=== PATIENT | female | born 1970 | race Caucasian/White ===

== ENCOUNTER 2016-12-07 13:04 | Emergency (ER) | payer OTHER ==
[2016-12-07 17:12] LABS: Urine Bilirubin Negative (Negative); Urine Glucose Negative (Negative); Urine Nitrite Negative (Negative)
[2016-12-07 17:15] VITALS: BP 133/66
[2016-12-07 18:04] LABS: Hematocrit 37 % (35-47); Hemoglobin 12.4 g/dl (12.0-16.0); Mean Corpuscular HGB Conc 34 g/dl (31-36); Mean Corpuscular Hemoglobin 30 pg (27-31); Mean Corpuscular Volume 91 fL (80-97); Mean Platelet Volume 8 um3 (7.4-10.4); Red Cell Distribution Width 14 % (10.5-15); White Blood Count 14.4 10^3/ul (3.5-10.8)
[2016-12-07 18:38] LABS: Albumin 4.1 g/dL (3.2-5.2); BUN/Creatinine Ratio 8.1 (8-20); EGFR Non-African American 47.4 (>60); Globulin 3.6 g/dL (2-4); Potassium 3.9 mmol/L (3.5-5.0); Total Bilirubin 0.4 mg/dL (0.2-1.0); Total Protein 7.7 g/dL (6.4-8.9)
--- NOTE | 2016-12-07 18:43 | RAD ---
INDICATION: Right flank pain COMPARISON: CT abdomen pelvis January 21, 2014 TECHNIQUE: Noncontrast axial source images were acquired from the level hemidiaphragms to the symphysis pubis as part of CT imaging for renal stone. Lung bases: The lung bases are clear. Liver: The liver is normal in size. Noncontrast imaging shows no evidence of a hepatic mass or ductal dilatation. Gallbladder: Cholecystectomy. Spleen: The spleen is normal in size. The noncontrast CT appearance is normal. Pancreas: Noncontrast imaging shows no pancreatic mass or ductal dilitation. Adrenal glands: No masses are identified. Kidneys/Bladder: There is no evidence of nephrolithiasis or CT evidence of hydronephrosis. Noncontrast imaging shows no evidence of a renal mass. The bladder is unremarkable.. Adenopathy: There is no evidence of intraperitoneal or retroperitoneal adenopathy. Evaluation is limited without oral contrast. Fluid collections: There are no free or localized fluid collections. Vessels: The aorta and iliac vessels are normal in caliber. There are no significant atherosclerotic changes. The IVC appears normal Pelvic organs: The uterus and adnexa appear normal GI tract: Evaluation of the bowel is limited without oral contrast. The stomach, small bowel, and lower GI tract appear grossly normal. There are no obstructive findings. The appendix is visualized and appears normal. Soft tissues: No soft tissue abnormalities of the extraperitoneal abdomen or pelvis are identified. Osseous structures: There are no acute osseous findings. IMPRESSION: CHOLECYSTECTOMY. NORMAL APPENDIX. NO MASS OR INFLAMMATORY CHANGE.
== END 2016-12-07 20:25 | disposition home or self-care (01) ==
LOC: ED 13:04
DX: R10.84 Generalized abdominal pain (principal); Z90.49 Acquired absence of other specified parts of digestive tract
CPT/HCPCS: 36415; 74176; 80053; 81003; 83605; 83690; 85025; 99282

== ENCOUNTER 2017-03-30 07:49 | Observation (INO) | payer OTHER ==
[2017-03-30 09:33] LABS: Hematocrit 37 % (35-47); Hemoglobin 12.5 g/dl (12.0-16.0); Mean Corpuscular HGB Conc 34 g/dl (31-36); Mean Corpuscular Hemoglobin 30 pg (27-31); Mean Corpuscular Volume 90 fL (80-97); Mean Platelet Volume 9 um3 (7.4-10.4); Red Blood Count 4.16 10^6/ul (4.0-5.4); Red Cell Distribution Width 14 % (10.5-15)
[2017-03-30 09:37] LABS: Add Diff/Slide Review? Slide Review Added; Comments Flag Yes
[2017-03-30 09:56] LABS: ALT 15 U/L (7-52); AST 18 U/L (13-39); Albumin 4.2 g/dL (3.2-5.2); Alkaline Phosphatase 84 U/L (34-104); Amylase 27 U/L (29-103); Anion Gap 9 mmol/L (2-11); BUN/Creatinine Ratio 9.1 (8-20); Blood Urea Nitrogen 10 mg/dL (6-24); C Reactive Protein 13.49 mg/L (< 5.00); CO2 Carbon Dioxide 25 mmol/L (22-32); Calcium 9.3 mg/dL (8.6-10.3); Chloride 98 mmol/L (101-111); EGFR African American 69.1 (>60); EGFR Non-African American 53.7 (>60); Globulin 3.4 g/dL (2-4); Glucose 108 mg/dL (70-100); Lipase < 10 U/L (11.0-82.0); Potassium 3.8 mmol/L (3.5-5.0); Sodium 132 mmol/L (133-145); Total Protein 7.6 g/dL (6.4-8.9)
--- NOTE | 2017-03-30 10:26 | RAD ---
INDICATION: Abdominal pain and constipation. COMPARISON: Comparison is made with a prior CT of the abdomen and pelvis from December 07, 2016. TECHNIQUE: Frontal supine films of the abdomen were obtained. FINDINGS: There are scattered air-fluid levels which appear to be in the small bowel. There is mild dilatation of a single small bowel loop. The colon is nondistended. No free intraperitoneal air is seen. There are multiple surgical clips in the right upper quadrant from a prior cholecystectomy. There is also a single surgical clip in the left upper quadrant. IMPRESSION: AIR-FLUID LEVELS WITHIN THE SMALL BOWEL SUSPICIOUS FOR A PARTIAL SMALL BOWEL OBSTRUCTION LESS LIKELY PARALYTIC ILEUS.
[2017-03-30] MEDS ORDERED: Ondansetron ODT TAB* 4 MG PO ONE ×2 (10:30→13:15)
[2017-03-30] MEDS ORDERED: NS 0.9% 1000 ML* 1,000 ML IV ONE (10:30)
[2017-03-30] MEDS ORDERED: Morphine INJ* 2 MG/ML 1 ML SYRINGE IV ONE (10:30)
--- NOTE | 2017-03-30 10:58 | ED ---
Abdominal Pain/Female - HPI Summary HPI Summary: Patient presents with greater than one week of constipation. She has a history of constipation, and has tried her normal bowel routine without success. She contacted her PCP who recommended using Miralax, which she also used without relief. She has diffuse abdominal pain and is feeling unwell. He appetite has decreased but she is taking fluids well. She denies fever, chills, N/V/D or back pain. She has noticed blood in her urine the past few days as well, but this is not uncommon for her. She denies increased urgency, frequency, or burning. She has stage 3 renal failure and therefore any need for contrast needs to be cleared through Dr. Limon. - History of Current Complaint Chief Complaint: EDAbdPain Stated Complaint: ABD PAIN, Time Seen by Provider: 03/30/17 09:33 Hx Obtained From: Patient Hx Last Menstrual Period: 11/19/13 ?: No Onset/Duration: Gradual Onset, Lasting Weeks, Still Present Timing: Constant Severity Initially: Moderate Severity Currently: Severe Pain Intensity: 8 Location: Diffuse Radiates: No Character: Dull Aggravating Factor(s): Movement Alleviating Factor(s): Nothing Associated Signs and Symptoms: Positive: Constipation, Decreased Appetite. Negative: Blood in Stool, Vaginal Discharge, Nausea, Vomiting, Diarrhea Allergies/Adverse Reactions: Allergies Allergy/AdvReac Type Severity Reaction Status Date / Time Flu Virus Vaccine Allergy Unknown Unknown Verified 12/26/16 14:08 Reaction Details Napavine Allergy Swelling Verified 12/26/16 14:08 Trazodone Allergy Hives Verified 12/26/16 14:08 environmental Allergy Mild Unknown Uncoded 12/26/16 14:08 Reaction Details Home Medications: Home Medications Cyanocobalamin INJ * [Vitamin B12 INJ *] 1,000 mcg IM WEEKLY 03/30/17 [History Confirmed 03/30/17] Cyclobenzaprine TAB* [Flexeril 10 MG TAB*] 10 mg PO QPM 03/30/17 [History Confirmed 03/30/17] Divalproex DR TAB(*) [Depakote DR TAB(*)] 250 mg PO QAM 03/30/17 [History Confirmed 03/30/17] Divalproex DR TAB(*) [Depakote DR TAB(*)] 500 mg PO QPM 03/30/17 [History Confirmed 03/30/17] Fluticasone NASAL SPRAY 50MCG* [Flonase NASAL SPRAY 50MCG*] 2 spray BOTH NARES QAM 03/30/17 [History Confirmed 03/30/17] LORazepam TAB(*) [Ativan 0.5 MG TAB (*)] 0.5 mg PO BID PRN 03/30/17 [History Confirmed 03/30/17] LevoCETirizine TAB (NF) [Xyzal TAB (NF)] 5 mg PO QAM 03/30/17 [History Confirmed 03/30/17] Nitroglycerin 2% OINT* 1 applic TOPICAL Q8H PRN 03/30/17 [History Confirmed ] Polyethylene Glycol 3350* [Miralax*] 17 gm PO DAILY PRN 03/30/17 [History Confirmed 03/30/17] Propranolol LA CAP* [Inderal LA CAP*] 60 mg PO QPM 03/30/17 [History Confirmed 03/30/17] Pyridoxine TAB* [Vitamin B6 TAB*] 100 mg PO BID 03/30/17 [History Confirmed ] Sumatriptan [Imitrex] 5 mg NASAL DAILY PRN 03/30/17 [History Confirmed 03/30/17] lamoTRIgine TAB(*) [LaMICtal TAB(*)] 75 mg PO QPM 03/30/17 [History Confirmed ] PMH/Surg Hx/FS Hx/Imm Hx Endocrine/Hematology History: Denies: Hx Diabetes, Hx Thyroid Disease Cardiovascular History: Reports: Hx Valvular Heart Disease - Aortic regurg Denies: Hx Hypertension Respiratory History: Reports: Hx Asthma Denies: Hx Chronic Obstructive Pulmonary Disease (COPD) GI History: Reports: Hx Ulcer - gerd, Other GI Disorders - Hx GERD Neurological History: Reports: Hx Seizures Psychiatric History: Reports: Hx Bipolar Disorder - Cancer History Hx Chemotherapy: No Hx Radiation Therapy: No - Surgical History Surgery Procedure, Year, and Place: erik. left knee lateral release Infectious Disease History: No Infectious Disease History: Denies: Hx Clostridium Difficile, Hx Hepatitis, Hx Human Immunodeficiency Virus (HIV), Hx of Known/Suspected MRSA, Hx Shingles, Hx Tuberculosis, Traveled Outside the [place] in Last 30 Days - Family History Known Family History: Positive: Cardiac Disease - Social History Occupation: Disabled Lives: With Family Alcohol Use: Rare Substance Use Type: Reports: None Smoking Status (MU): Former Smoker Type: Cigarettes Review of Systems Negative: Fever, Chills Negative: Shortness Of Breath Positive: Abdominal Pain. Negative: Vomiting, Diarrhea, Nausea Positive: hematuria All Other Systems Reviewed And Are Negative: Yes Physical Exam Triage Information Reviewed: Yes Vital Signs On Initial Exam: Initial Vitals Temp Pulse Resp BP Pulse Ox 98.2 F 74 18 140/69 100 03/30/17 07:51 03/30/17 07:51 03/30/17 07:51 03/30/17 07:51 03/30/17 07:51 Vital Signs Reviewed: Yes Appearance: Positive: Well-Appearing, Well-Nourished, Pain Distress Skin: Positive: Warm, Skin Color Reflects Adequate Perfusion, Dry, Soft Head/Face: Positive: Normal Head/Face Inspection Eyes: Positive: EOMI, MILADIS, Conjunctiva Clear ENT: Positive: Hearing grossly normal Neck: Positive: Supple, Nontender, No Lymphadenopathy Respiratory/Lung Sounds: Positive: Clear to Auscultation, Breath Sounds Present Cardiovascular: Positive: RRR Abdomen Description: Positive: Soft, Guarding. Negative: Nontender - diffuse tenderness, CVA Tenderness (R), CVA Tenderness (L), Distended, McBurney's Point Tenderness, Peritoneal Signs Bowel Sounds: Positive: Hypoactive Musculoskeletal: Negative: Edema Left, Edema Right Neurological: Positive: Sensory/Motor Intact, Alert, Oriented to Person Place, Time, [place] Bundle Intact Distally, Normal Gait Psychiatric: Positive: Affect/Mood Appropriate AVPU Assessment: Alert Diagnostics - Vital Signs Vital Signs Temp Pulse Resp BP Pulse Ox 03/30/17 10:39 15 03/30/17 10:03 97.7 F 58 16 127/64 100 03/30/17 09:54 97.7 F 58 18 106/48 100 03/30/17 09:10 97.4 F 66 18 120/61 99 03/30/17 07:51 98.2 F 74 18 140/69 100 - Laboratory Lab Results: Lab Results 03/30/17 03/30/17 03/30/17 Range/Units 09:16 09:16 09:16 WBC 18.0 H (3.5-10.8) 10^3/ul RBC 4.16 (4.0-5.4) 10^6/ul Hgb 12.5 (12.0-16.0) g/dl Hct 37 (35-47) % MCV 90 (80-97) fL MCH 30 (27-31) pg MCHC 34 (31-36) g/dl RDW 14 (10.5-15) % Plt Count 241 (150-450) 10^3/ul MPV 9 (7.4-10.4) um3 Neut % (Auto) 71.7 (38-83) % Lymph % (Auto) 20.5 L (25-47) % [place] % (Auto) 6.5 (1-9) % Eos % (Auto) 0.4 (0-6) % Baso % (Auto) 0.9 (0-2) % Absolute Neuts (auto) 12.9 H (1.5-7.7) 10^3/ul Absolute Lymphs (auto) 3.7 (1.0-4.8) 10^3/ul Absolute Monos (auto) 1.2 H (0-0.8) 10^3/ul Absolute Eos (auto) 0.1 (0-0.6) 10^3/ul Absolute Basos (auto) 0.2 (0-0.2) 10^3/ul Absolute Nucleated RBC 0.01 10^3/ul Nucleated RBC % 0 Sodium 132 L (133-145) mmol/L Potassium 3.8 (3.5-5.0) mmol/L Chloride 98 L (101-111) mmol/L Carbon Dioxide 25 (22-32) mmol/L Anion Gap 9 (2-11) mmol/L BUN 10 (6-24) mg/dL Creatinine 1.10 H (0.51-0.95) mg/dL Est GFR ( Amer) 69.1 (>60) Est GFR (Non-Af Amer) 53.7 (>60) BUN/Creatinine Ratio 9.1 (8-20) Glucose 108 H (70-100) mg/dL Lactic Acid 1.0 (0.5-2.0) mmol/L Calcium 9.3 (8.6-10.3) mg/dL Total Bilirubin 0.40 (0.2-1.0) mg/dL AST 18 (13-39) U/L ALT 15 (7-52) U/L Alkaline Phosphatase 84 (34-104) U/L C-Reactive Protein 13.49 H (< 5.00) mg/L Total Protein 7.6 (6.4-8.9) g/dL Albumin 4.2 (3.2-5.2) g/dL Globulin 3.4 (2-4) g/dL Albumin/Globulin Ratio 1.2 (1-3) Amylase 27 L (29-103) U/L Lipase < 10 L (11.0-82.0) U/L Result Diagrams: 03/30/17 09:16 03/30/17 09:16 Lab Statement: Any lab studies that have been ordered have been reviewed, and results considered in the medical decision making process. - Radiology No standard instances Xray Interpretation: Positive (See Comments) Radiology Interpretation Completed By: Radiologist - air-fluid levels with partial small bowel obstruction - CT No standard instances CT Interpretation: No Acute Changes CT Interpretation Completed By: Radiologist - Negative for SBO. upper normal fluid and gas distention of colon Abdominal Pain Fem Course/Dx - Diagnoses Differential Diagnosis: Positive: Appendicitis, Bowel Obstruction, Constipation , Diverticulitis, Irritable Bowel Syndrome, , Urinary Tract Infection Provider Diagnoses: Partial small bowel obstruction - Provider Notifications Discussed Care Of Patient With: Dr. Lyon, general surgery; Dr. Briggs, ED attending. Time Discussed With Above Provider: 10:50 Instructed by Provider To: Admit As Observation Discharge - Discharge Plan Condition: Stable Disposition: ADMITTED TO [facility]
[2017-03-30] MEDS ORDERED: Morphine INJ* 4 MG/ML 1 ML SYRINGE IV ONE ×2 (12:03→13:15)
[2017-03-30] MEDS ORDERED: NS 0.9% 1000 ML* 1,000 ML IV SCH (13:45)
[2017-03-30 13:46] LABS: Urine Bacteria 1+ (Absent); Urine Bilirubin Negative (Negative); Urine Glucose Negative (Negative); Urine Nitrite Negative (Negative)
--- NOTE | 2017-03-30 13:57 | RAD ---
INDICATION: Partial small bowel obstruction on abdominal radiograph. Abdominal pain with constipation for one week. Chronic renal insufficiency. COMPARISON: March 30, 2017 abdominal radiograph. December 07, 2016 CT. TECHNIQUE: Multidetector CT images were obtained from the lung bases to the ischial tuberosities. Oral contrast administered. Assessment of the visceral limited without IV contrast. REPORT: Unremarkable visualized inferior thorax. Post cholecystectomy. Negative for biliary dilatation. Unremarkable unenhanced liver, pancreas, spleen. Enteric contrast is limited to the stomach with moderate gastric distention. No suspicious CT finding of the upper GI. The small bowel is decompressed without suspicious CT finding. The cecum lies transverse terminating LEFT of midline at the mid abdomen. Unremarkable appendix visualized extending rightward from the tip of the cecum anterior to the aorta and inferior vena cava reference axial images 39-42. The colon is distended with fluid through the distal transverse segment. Negative for colonic bowel wall thickening. There is formed stool within the descending colon through rectum with moderately severe rectal distention with stool. Mild colonic diverticulosis without findings of diverticulitis. Negative for ascites, free air, hernias. Normal adrenal glands. Unremarkable unenhanced kidneys. Negative for hydronephrosis. Unremarkable nondilated ureters and distended urinary bladder as well as the anteverted uterus and adnexal regions. Negative for lymphadenopathy. Normal diameter abdominal aorta and iliac arteries with minimal calcific plaque. Physiologic distention of the IVC. Subchondral cystic change at the anterior roof of the RIGHT acetabulum. No suspicious focal osseous lesions. IMPRESSION: 1. Negative for small bowel obstruction. Abdomen radiograph findings of the same date correlate with upper normal fluid and gas distention of the colon through the distal transverse colon which appears secondary to inspissated formed stool in the distal colon with moderately severe rectal distention. 2. Mild colonic diverticulosis without findings of diverticulitis. 3. Normal appendix documented. 4. Negative for obstructive uropathy.
[2017-03-30] MEDS ORDERED: Enoxaparin(*) 40 MG/0.4 ML SYR SUBCUT SCH (14:00)
[2017-03-30] MEDS ORDERED: Bisacodyl EC TAB* 5 MG PO ONE (14:40)
[2017-03-30] MEDS ORDERED: Bisacodyl SUPP* 10 MG SUPP PR ONE (14:40)
[2017-03-30] MEDS ORDERED: LORazepam TAB(*) 0.5 MG PO PRN (14:40)
[2017-03-30] MEDS ORDERED: Cyclobenzaprine TAB* 10 MG PO SCH (18:00)
[2017-03-30] MEDS ORDERED: Propranolol LA CAP* 60 MG PO SCH (18:00)
[2017-03-30] MEDS ORDERED: lamoTRIgine TAB(*) 25 MG PO SCH (18:00)
[2017-03-30] MEDS ORDERED: Divalproex DR TAB(*) 250 MG PO SCH (18:00)
[2017-03-30] MEDS ORDERED: Senna TAB PO PRN (19:24)
[2017-03-30] MEDS: Morphine INJ* 4 MG/ML 1 ML SYRINGE IV PRN (19:36)
[2017-03-30] MEDS: Famotidine TAB* 20 MG PO SCH (21:40)
[2017-03-30] MEDS: Mometasone/Formoter 200/5 MDI INH SCH (21:42)
--- NOTE | 2017-03-30 22:42 | HP ---
HISTORY AND PHYSICAL: DATE OF ADMISSION: 03/30/17 PRIMARY CARE PHYSICIAN: Dr. Foote. CHIEF COMPLAINT: Abdominal pain, constipation, nausea, vomiting. HISTORY OF PRESENT ILLNESS: Ms. Longoria is a 47-year-old female with past medical history significant for asthma, bipolar disorder, CKD, and seizure disorder, who presents to the hospital with abdominal pain, constipation, and some episodes of nausea and vomiting. The patient cannot recall when her last BM was , think it has been at least a week. She states that beginning on Monday, which was 3 days ago, she started taking increasing laxatives, stool softeners, and fiber supplements, although cannot recall the names of any of these medications, but they are all over the counter. She noted abdominal pain due to the constipation. She called her GI doctor recently, Dr. Garcia, who prescribed her MiraLAX that she said she mixed in 64 ounces of liquid and drank that; however, still was not able to move her bowels. She states that she, at baseline, occasionally gets nausea and vomiting, maybe 1 to 2 times a month, but feels like it has been more prevalent recently with worsening abdominal pain exacerbation. She has been using Zofran which has been helpful. She states that her last episode of emesis was 1 to 2 days ago and has mostly been stomach acid. She says she has been able to take her medications with no problems. Denies any fever, chills, or chest pain. She has chronic shortness of breath due to her asthma, but no worse than usual. In the emergency department, abdominal films showed possible air-fluid level that was concerning for small bowel obstruction, so Surgery was consulted and we were asked to admit the patient. PAST MEDICAL HISTORY: Asthma, allergies, bipolar disorder, CKD, seizure disorder. PAST SURGICAL HISTORY: Cholecystectomy, knee operation. HOME MEDICATIONS: 1. B12 1000 mcg IM weekly. 2. Pyridoxine 100 mg by mouth 2 times daily. 3. MiraLAX 17 g by mouth daily as needed for constipation. 4. Lorazepam 0.5 mg by mouth 2 times daily as needed for anxiety. 5. Nitroglycerin 1 application topical every 8 hours as needed for pain. 6. Imitrex 5 mg nasal daily as needed for migraines. 7. Lamictal 75 mg by mouth nightly. 8. Propranolol 60 mg by mouth nightly. 9. Cyclobenzaprine 10 mg by mouth nightly. 10. Mometasone/formoterol 1 puff inhaled 2 times daily. 11. Depakote 250 mg in the morning, 500 mg by mouth in the evening. 12. Flonase 2 sprays both nares daily. 13. Singulair 10 mg by mouth daily. 14. Xyzal 5 mg by mouth daily. 15. Famotidine 40 mg by mouth daily. ALLERGIES: TRAZODONE, LITHIUM, and FLU VIRUS VACCINE. FAMILY HISTORY: She states she does not know as she is not close with her family. SOCIAL HISTORY: The patient quit smoking 11 years ago. Smoked about a pack per day for 15 years. Denies any alcohol or illicit drug use. REVIEW OF SYSTEMS: A 12-point review of systems negative except for that as noted in the HPI. PHYSICAL EXAMINATION GENERAL: The patient is a middle-aged female sitting in the bed, in no apparent distress. VITAL SIGNS: On admission, temperature 98.2, heart rate of 74, respiratory rate of 18, O2 saturation 100% on room air, blood pressure 140/61. HEENT: Pupils equal, round, reactive to light and accommodation. Anicteric sclerae. Moist mucous membranes. No cervical adenopathy. LUNGS: Clear to auscultation bilaterally. No wheezes, rales, or rhonchi. CARDIOVASCULAR: Regular rate and rhythm. S1, S2 present. No murmurs, gallops , or rubs. ABDOMEN: Soft, nondistended. Mild tenderness to palpation. Bowel sounds hypoactive. No rebound or guarding. EXTREMITIES: No cyanosis, clubbing, or edema. RECTAL: The patient has a palpable ball of stool in the rectum that I was able to break up little bit; however, was unable to remove a significant portion of it. NEURO: The patient is alert and oriented x3. No focal neurological deficits. DIAGNOSTIC STUDIES/LAB DATA: White blood cell count of 18, hematocrit of 37, platelets of 241. Sodium of 132, potassium 3.8, chloride 98, BUN 10, creatinine 1.1, glucose 108, lactic acid 1.0. CRP 13. Lipase less than 10. UA with trace leuk esterase. Abdominal x-ray personally reviewed shows air-fluid levels, suspicious for partial small bowel obstruction. CT abdomen and pelvis personally reviewed read as negative for small bowel obstruction. Abdomen, radiographic findings of the same day, correlate with upper normal fluid and gas distention in the colon, which appeared secondary to inspissated formed stool in the distal colon with moderately severe rectal distention. Mild colonic diverticulosis without diverticulitis, normal appendix , no obstructive uropathy. ASSESSMENT AND PLAN: Severe constipation causing abdominal pain, nausea, vomiting in a 47-year-old female with past medical history of asthma, bipolar disorder, chronic kidney disease, and seizure disorder. 1. Severe constipation: This was initially felt to be small bowel obstruction ; however, on further imaging, it seemed that this is most likely due to constipation with significant stool in the colon and rectum. I was unable to manually disimpact the patient. We will start with a suppository and some oral Dulcolax and can escalate if needed. We will order soapsuds enema if the suppository does not prove successful. We will keep the patient on clear liquid diet for now. 2. Seizure disorder: Continue Depakote, lamotrigine. 3. Bipolar disorder: Medications as above. 4. Chronic kidney disease: The patient's creatinine seems to be around baseline. 5. Asthma: Continue home Dulera and Singulair. 6. DVT prophylaxis: Lovenox subcu. 7. Code status: The patient is a full code. TIME SPENT: Total time spent on this admission 45 minutes with over half the time spent [id number] with the patient in counseling and coordinating care. CC: Dr. Foote* [id number]/CPS #: [id number] MTDD
[2017-03-31] MEDS ORDERED: Ondansetron INJ* 2 MG/ML VIAL ONE (01:05)
[2017-03-31] MEDS ORDERED: Ondansetron INJ* 2 MG/ML VIAL IV PRN (01:25)
[2017-03-31] MEDS: Morphine INJ* 4 MG/ML 1 ML SYRINGE IV PRN (02:37)
[2017-03-31 06:43] LABS: Hematocrit 32 % (35-47); Mean Corpuscular HGB Conc 34 g/dl (31-36); Mean Corpuscular Hemoglobin 31 pg (27-31); Mean Corpuscular Volume 91 fL (80-97); Mean Platelet Volume 8 um3 (7.4-10.4); Red Blood Count 3.53 10^6/ul (4.0-5.4); Red Cell Distribution Width 14 % (10.5-15); White Blood Count 13.1 10^3/ul (3.5-10.8)
[2017-03-31 06:53] LABS: BUN/Creatinine Ratio 8.6 (8-20); Calcium 8.3 mg/dL (8.6-10.3); EGFR African American 83.8 (>60); EGFR Non-African American 65.2 (>60); Potassium 3.8 mmol/L (3.5-5.0)
--- NOTE | 2017-03-31 07:48 | DCNOTE ---
Patient seen this morning. Had 2 solid BMs overnight that were substantial, also some additional liquid stools. No nausea currently, feeling much better. Would like to try solid food. On exam, RRR, s1 and s2 present, no m/g/r, abd soft, non-tender, BS+ Will trial solid food this morning, as long as no significant N/V or worsening pain will discharge home with PO laxatives.
[2017-03-31] MEDS: Mometasone/Formoter 200/5 MDI INH SCH (07:56)
[2017-03-31 08:24] VITALS: BP 119/66
[2017-03-31] MEDS: Famotidine TAB* 20 MG PO SCH (08:33)
[2017-03-31] MEDS ORDERED: Fluticasone NASAL SPRAY 50MCG* 16 gm SPRAY BTL BOTH NARES SCH (09:00)
[2017-03-31] MEDS ORDERED: Divalproex DR TAB(*) 250 MG PO SCH (09:00)
[2017-03-31] MEDS ORDERED: Montelukast Sodium TAB* 10 MG PO SCH (09:00)
--- NOTE | 2017-04-01 07:10 | DS ---
CC: Dr. Foote DISCHARGE SUMMARY: DATE OF ADMISSION: 03/30/17 DATE OF DISCHARGE: 03/31/17 PRIMARY CARE PHYSICIAN: Dr. Foote. PRINCIPAL DISCHARGE DIAGNOSES: 1. Abdominal pain. 2. Constipation. 3. Nausea and vomiting. SECONDARY DIAGNOSES: 1. Asthma. 2. Allergies. 3. Bipolar disorder. 4. Chronic kidney disease. 5. Seizure disorder. DISCHARGE MEDICATION REGIMEN: 1. B12 1000 mcg IM weekly. 2. Pyridoxine 100 mg by mouth 2 times daily. 3. Ativan 0.5 mg by mouth 2 times daily as needed for anxiety. 4. Nitroglycerin 1 application topical every 8 hours as needed for pain. 5. Sumatriptan 5 mg nasal daily as needed for migraine. 6. Lamictal 75 mg by mouth nightly. 7. Propranolol 60 mg by mouth nightly. 8. Flexeril 10 mg by mouth nightly. 9. Dulera 1 puff inhaled 2 times daily. 10. Depakote 250 mg by mouth every morning and 500 mg by mouth at night. 11. Flonase 2 sprays in both nares daily. 12. Singulair 10 mg by mouth daily. 13. Xyzal 5 mg by mouth daily. 14. Famotidine 40 mg by mouth daily. 15. Senna 1 tablet by mouth daily. 16. MiraLAX 17 g by mouth daily as needed for constipation. 17. Lactulose 30 mL by mouth 3 times daily as needed for constipation. STUDIES DURING HOSPITALIZATION: KUB. Impression: Air-fluid levels within the small bowel suspicio us for partial small bowel obstruction less likely paralytic ileus. CT abdomen and pelvis without contrast, impression: Negative for small bowel obstruction. Abdomen radiograph findings of the same day correlate with upper normal fluid, gas, and distension o f the colon to the distal transverse colon, which appears secondary to inspissated formed stool in t he distal colon with moderately severe rectal distention. Mild colonic diverticulosis without findi ngs of diverticulitis, normal appendix, and negative for obstructive uropathy. HISTORY OF PRESENT ILLNESS AND HOSPITAL SUMMARY: Please see my full history and physical done for f ull details. Briefly, Ms. Longoria is a 47-year-old female who presented to the hospital with abdominal pain, nausea, and vomiting after over a week of constipation. There was initially some concern for small bowel obstruction based on the x-ray; however, CT scan just showed fecal impaction in the rec liang. I attempted a manual disimpaction, which was not successful. She was treated with oral and re ctal laxatives and suppositories with significant movement of the bowels and improvement in her symp toms. She tolerated the diet. She will be discharged home on a bowel regimen to keep herself regul ar. She will follow up with her GI doctor and her PCP as an outpatient. TIME SPENT: Total time spent on this discharge, 40 minutes. This is just a summary of the hospitalization. Please see the full medical record for further detai ls. [id number]/CPS #: [id number]
== END 2017-03-31 10:45 | disposition home or self-care (01) ==
LOC: ED 07:49 → SSU 13:01 → INTOOBSV 13:01
PROVIDERS: ADMIT Hospitalist; ATTEND Hospitalist
DX: R10.9 Unspecified abdominal pain (principal); K59.00 Constipation, unspecified; R11.2 Nausea with vomiting, unspecified; J45.909 Unspecified asthma, uncomplicated; N18.9 Chronic kidney disease, unspecified; G40.909 Epilepsy, unspecified, not intractable, without status epilepticus; I35.1 Nonrheumatic aortic (valve) insufficiency; F31.9 Bipolar disorder, unspecified; Z79.899 Other long term (current) drug therapy; Z88.8 Allergy status to other drugs, medicaments and biological substances; Z87.891 Personal history of nicotine dependence
CPT/HCPCS: 36415; 74000; 74176; 80048; 80053; 81003; 81015; 82150; 83605; 83690; 85025; 86140; 87086; 94640; 96374; 96375; 96376; 99285; A9270-GY; G0378; J1650; J2270; J2405

== ENCOUNTER 2017-04-13 12:24 | Emergency (ER) | payer OTHER ==
[2017-04-13 12:35] VITALS: BP 147/76
[2017-04-13] MEDS ORDERED: Ondansetron INJ* 2 MG/ML VIAL IV ONE (14:10)
[2017-04-13] MEDS ORDERED: NS 0.9% 1000 ML* 2,000 ML IV ONE (14:10)
[2017-04-13 14:57] LABS: Hematocrit 34 % (35-47); Hemoglobin 11.5 g/dl (12.0-16.0); Mean Corpuscular HGB Conc 34 g/dl (31-36); Mean Corpuscular Hemoglobin 30 pg (27-31); Mean Corpuscular Volume 91 fL (80-97); Mean Platelet Volume 8 um3 (7.4-10.4); Red Blood Count 3.79 10^6/ul (4.0-5.4); Red Cell Distribution Width 14 % (10.5-15)
[2017-04-13 15:15] LABS: ALT 15 U/L (7-52); AST 22 U/L (13-39); Albumin 3.9 g/dL (3.2-5.2); Alkaline Phosphatase 73 U/L (34-104); Amylase 27 U/L (29-103); Anion Gap 9 mmol/L (2-11); BUN/Creatinine Ratio 8.2 (8-20); Blood Urea Nitrogen 9 mg/dL (6-24); C Reactive Protein 20.61 mg/L (< 5.00); CO2 Carbon Dioxide 26 mmol/L (22-32); Calcium 9.3 mg/dL (8.6-10.3); Chloride 102 mmol/L (101-111); Creatine Kinase 59 U/L (10-223); EGFR African American 69.1 (>60); EGFR Non-African American 53.7 (>60); Globulin 2.9 g/dL (2-4); Glucose 93 mg/dL (70-100); Lipase < 10 U/L (11.0-82.0); Magnesium 1.9 mg/dL (1.9-2.7); Potassium 3.1 mmol/L (3.5-5.0); Sodium 137 mmol/L (133-145); Total Protein 6.8 g/dL (6.4-8.9)
[2017-04-13 15:16] LABS: Troponin I 0.01 ng/mL (<0.04)
--- NOTE | 2017-04-13 15:38 | RAD ---
Indication: Gastroesophageal reflux. Flat plate of the abdomen demonstrates no free air. No dilated loops of bowel are noted. IMPRESSION: No free air or obstruction is noted.
[2017-04-13] MEDS ORDERED: Potassium Chlor TAB* 20 MEQ TAB.ER PO ONE (15:46)
--- NOTE | 2017-04-13 20:11 | ED ---
Nisha Kramer Claudia, scribed for Trenton Toure MD on 04/13/17 at 1416 . Complex/Multi-Sys Presentation - HPI Summary HPI Summary: 47 year old female presents to the ED with intermittent palpitations and NV. Pt states intermittent palpitations over the past few days with no angina or syncopal episodes. Pt describes it as a fluttering sensation. Pt states that she has been seen by a sleever 2-3 years ago and wore a halter monitor for similar episodes with no abnormalities. Pt also notes that she was seen in the ED 2 weeks ago for constipation but no SBO was appreciated. Pt states that she has been having nausea and vomiting post PO for a few days. Pt also notes 2 days with no BM. Pt denies any abd pain, bloody stool, belching or gas with the episodes but does note some abd sweling. She notes aggravating factors are PO intake but denies any alleviating factors. She also denies any leg swelling, fever chills. She notes that she took her BP and HR yesterday and notes they were high for her at 180/49 and 86 respectively. Pt has seen a GI specialist in [place] for similar Sx and states that the physician noted a "slow moving GI tract" and stated that she needed a scope. The pt has to reschedule her appt for a scope. No PMHx of HTN or DM PMHx of Kidney Disorder - History Of Current Complaint Chief Complaint: EDGeneral Time Seen by Provider: 04/13/17 13:49 Hx Obtained From: Patient Onset/Duration: Gradual Onset, Lasting Days, Still Present Timing: Intermittent, Lasting: Associated Signs And Symptoms: Positive: Palpitations, Nausea, Vomiting. Negative: Abdominal Pain - Allergies/Home Medications Allergies/Adverse Reactions: Allergies Allergy/AdvReac Type Severity Reaction Status Date / Time Flu Virus Vaccine Allergy Unknown Unknown Verified 12/26/16 14:08 Reaction Details [place] Allergy Swelling Verified 12/26/16 14:08 Trazodone Allergy Hives Verified 12/26/16 14:08 environmental Allergy Mild Unknown Uncoded 12/26/16 14:08 Reaction Details PMH/Surg Hx/FS Hx/Imm Hx Previously Healthy: Yes Endocrine/Hematology History: Reports: Hx Anemia Denies: Hx Diabetes, Hx Thyroid Disease Cardiovascular History: Reports: Hx Valvular Heart Disease - Aortic regurg Denies: Hx Hypertension Comment Only: Other Cardiovascular Problems/Disorders - Oliver's syndrome Respiratory History: Reports: Hx Asthma Denies: Hx Chronic Obstructive Pulmonary Disease (COPD) GI History: Reports: Hx Ulcer - gerd, Other GI Disorders - Hx GERD History: Reports: Other Problems/Disorders - chronic kidney disease Musculoskeletal History: Reports: Hx Scoliosis Sensory History: Reports: Hx Contacts or Glasses Denies: Hx Hearing Aid Opthamlomology History: Reports: Hx Contacts or Glasses Neurological History: Reports: Hx Migraine, Hx Seizures - 11/2013 Psychiatric History: Reports: Hx Anxiety, Hx Depression, Hx Bipolar Disorder - Cancer History Hx Chemotherapy: No Hx Radiation Therapy: No - Surgical History Surgery Procedure, Year, and Place: erik. left knee lateral release Infectious Disease History: No Infectious Disease History: Denies: Hx Clostridium Difficile, Hx Hepatitis, Hx Human Immunodeficiency Virus (HIV), Hx of Known/Suspected MRSA, Hx Shingles, Hx Tuberculosis, Traveled Outside the [place] in Last 30 Days - Family History Known Family History: Positive: Cardiac Disease Family History: Kidney Disorders - Social History Alcohol Use: None Substance Use Type: Reports: None Smoking Status (MU): Former Smoker Type: Cigarettes Have You Smoked in the Last Year: No Review of Systems Constitutional: Negative Negative: Fever, Chills Eyes: Negative Positive: Palpitations Respiratory: Negative Positive: Vomiting, Nausea. Negative: Abdominal Pain Genitourinary: Negative Musculoskeletal: Negative Skin: Negative Neurological: Negative Psychological: Normal All Other Systems Reviewed And Are Negative: Yes Physical Exam - Summary Physical Exam Summary: The patient is well-nourished in no acute distress and in no acute pain. Pt is mildly pallor. The skin is warm and dry and skin color reflects adequate perfusion. HEENT: The head is normocephalic and atraumatic. The pupils are equal and reactive. The conjunctivae are clear and without drainage. Nares are patent and without drainage. Mouth reveals dry mucous membranes and the throat is without erythema and exudate. The external ears are intact. The ear canals are patent and without drainage. The tympanic membranes are intact. Neck is supple with full range of motion and non-tender. There are no carotid bruits. There is no neck vein distension. Respiratory: Chest is non-tender. Lungs are clear to auscultation and breath sounds are symmetrical and equal. Cardiovascular: Hear is regular rate and rhythm. There is no murmur, ectopy or rub auscultated. There is no peripheral edema and pulses are symmetrical and equal. Abdomen: The abdomen is soft and non-tender. There are normal bowel sounds heard in all four quadrants and there is no organomegaly palpated. No swelling, rebound or guarding. Musculoskeletal: There is no back pain noted,no CVA tenderness. Extremities are non-tender with full range of motion. There is good capillary refill. There is no peripheral edema or calf tenderness elicited. Neurological: Patient is alert and oriented to person, place and time. The patient has symmetrical motor strength in all four extremities. Cranial nerves are grossly intact. Deep tendon reflexes are symmetrical and equal in all four extremities. Psychiatric: The patient has an appropriate affect and does not exhibit any anxiety or depression. Triage Information Reviewed: Yes Vital Signs On Initial Exam: Initial Vitals Temp Pulse Resp BP Pulse Ox 97.5 F 100 20 147/76 100 04/13/17 12:31 04/13/17 12:31 04/13/17 12:31 04/13/17 12:31 04/13/17 12:31 Vital Signs Reviewed: Yes Diagnostics - Vital Signs Vital Signs Temp Pulse Resp BP Pulse Ox 04/13/17 12:34 96.9 F 93 20 147/76 100 04/13/17 12:31 97.5 F 100 20 147/76 100 - Laboratory Lab Results: Lab Results 04/13/17 04/13/17 04/13/17 Range/Units 14:40 14:40 14:40 WBC 11.0 H (3.5-10.8) 10^3/ul RBC 3.79 L (4.0-5.4) 10^6/ul Hgb 11.5 L (12.0-16.0) g/dl Hct 34 L (35-47) % MCV 91 (80-97) fL MCH 30 (27-31) pg MCHC 34 (31-36) g/dl RDW 14 (10.5-15) % Plt Count 194 (150-450) 10^3/ul MPV 8 (7.4-10.4) um3 Neut % (Auto) 58.2 (38-83) % Lymph % (Auto) 31.9 (25-47) % Weber % (Auto) 7.8 (1-9) % Eos % (Auto) 1.0 (0-6) % Baso % (Auto) 1.1 (0-2) % Absolute Neuts (auto) 6.4 (1.5-7.7) 10^3/ul Absolute Lymphs (auto) 3.5 (1.0-4.8) 10^3/ul Absolute Monos (auto) 0.9 H (0-0.8) 10^3/ul Absolute Eos (auto) 0.1 (0-0.6) 10^3/ul Absolute Basos (auto) 0.1 (0-0.2) 10^3/ul Absolute Nucleated RBC 0.01 10^3/ul Nucleated RBC % 0 APTT (26.0-36.3) seconds Sodium 137 (133-145) mmol/L Potassium 3.1 L (3.5-5.0) mmol/L Chloride 102 (101-111) mmol/L Carbon Dioxide 26 (22-32) mmol/L Anion Gap 9 (2-11) mmol/L BUN 9 (6-24) mg/dL Creatinine 1.10 H (0.51-0.95) mg/dL Est GFR ( Amer) 69.1 (>60) Est GFR (Non-Af Amer) 53.7 (>60) BUN/Creatinine Ratio 8.2 (8-20) Glucose 93 (70-100) mg/dL Lactic Acid 2.1 H* (0.5-2.0) mmol/L Calcium 9.3 (8.6-10.3) mg/dL Magnesium 1.9 (1.9-2.7) mg/dL Total Bilirubin 0.30 (0.2-1.0) mg/dL AST 22 (13-39) U/L ALT 15 (7-52) U/L Alkaline Phosphatase 73 (34-104) U/L Total Creatine Kinase 59 (10-223) U/L Troponin I 0.01 (<0.04) ng/mL C-Reactive Protein 20.61 H (< 5.00) mg/L Total Protein 6.8 (6.4-8.9) g/dL Albumin 3.9 (3.2-5.2) g/dL Globulin 2.9 (2-4) g/dL Albumin/Globulin Ratio 1.3 (1-3) Amylase 27 L (29-103) U/L Lipase < 10 L (11.0-82.0) U/L Valproic Acid 99.0 (50-100) mcg/mL 04/13/17 Range/Units 15:42 WBC (3.5-10.8) 10^3/ul RBC (4.0-5.4) 10^6/ul Hgb (12.0-16.0) g/dl Hct (35-47) % MCV (80-97) fL MCH (27-31) pg MCHC (31-36) g/dl RDW (10.5-15) % Plt Count (150-450) 10^3/ul MPV (7.4-10.4) um3 Neut % (Auto) (38-83) % Lymph % (Auto) (25-47) % Weber % (Auto) (1-9) % Eos % (Auto) (0-6) % Baso % (Auto) (0-2) % Absolute Neuts (auto) (1.5-7.7) 10^3/ul Absolute Lymphs (auto) (1.0-4.8) 10^3/ul Absolute Monos (auto) (0-0.8) 10^3/ul Absolute Eos (auto) (0-0.6) 10^3/ul Absolute Basos (auto) (0-0.2) 10^3/ul Absolute Nucleated RBC 10^3/ul Nucleated RBC % APTT 33.6 (26.0-36.3) seconds Sodium (133-145) mmol/L Potassium (3.5-5.0) mmol/L Chloride (101-111) mmol/L Carbon Dioxide (22-32) mmol/L Anion Gap (2-11) mmol/L BUN (6-24) mg/dL Creatinine (0.51-0.95) mg/dL Est GFR ( Amer) (>60) Est GFR (Non-Af Amer) (>60) BUN/Creatinine Ratio (8-20) Glucose (70-100) mg/dL Lactic Acid (0.5-2.0) mmol/L Calcium (8.6-10.3) mg/dL Magnesium (1.9-2.7) mg/dL Total Bilirubin (0.2-1.0) mg/dL AST (13-39) U/L ALT (7-52) U/L Alkaline Phosphatase (34-104) U/L Total Creatine Kinase (10-223) U/L Troponin I (<0.04) ng/mL C-Reactive Protein (< 5.00) mg/L Total Protein (6.4-8.9) g/dL Albumin (3.2-5.2) g/dL Globulin (2-4) g/dL Albumin/Globulin Ratio (1-3) Amylase (29-103) U/L Lipase (11.0-82.0) U/L Valproic Acid (50-100) mcg/mL Result Diagrams: 04/13/17 14:40 04/13/17 14:40 Lab Statement: Any lab studies that have been ordered have been reviewed, and results considered in the medical decision making process. - Radiology ABD XRAY Xray Interpretation: No Acute Changes - NO FREE AIR OR OBSTRUCTION IS NOTED. Radiology Interpretation Completed By: Radiologist - EKG 1241 Cardiac Rate: NL - nml axis EKG Rhythm: Sinus Rhythm - 85 beats/min ST Segment: Non-Specific - non specific ST changes EKG Interpretation: no STEMI Re-Evaluation - Re-Evaluation 1 Re-Evaluation Time: 15:46 Comment: Lab results and abdomen XR are discussed with pt. Pt feels a little bit better. We will give her some fluids and see how she feels. 2 Re-Evaluation Time: 15:54 Comment: Spoke with the pt again regarding some concerns she has regarding her c /c of palpitations. I spoke with her reagrding her troponin level and EKG. 3 Re-Evaluation Time: 16:02 Comment: Spoke with thr pt again and she would like to be d/c from the ED. Complex Multi-Symp Course/Dx Assessment/Plan: 47 year old presents with palpitations, no BM, and increased vomitting. She also felt lightheaded and dizzy. Workup shows the pt is dehydrated with hypokalemia, lab studiues were obtained with potassium at 3.1 and CRP of 20. Pt troponin was .01. Lab were unchanged from previous. Abdomen XR shows no obstruction. Pt did not want to stay for further testing or treatment, so she will be d/c home with follow-up with her PCP. - Diagnoses Differential Diagnoses/HQI/PQRI: Cardiac Ischemia, Metabolic Abnormality, Urinary Tract Infection, Other - dehydration, hypokalemia, valparoic toxicity, sbo, constipation Provider Diagnoses: Dehydration, Heart palpitations, Hypokalemia Discharge - Discharge Plan Condition: Stable Disposition: HOME Patient Education Materials: Palpitations (ED), Dehydration (ED), Hypokalemia ( ED) Referrals: Newton Foote MD [Primary Care Provider] - 2 Days The documentation as recorded by the Nisha dickerson Claudia accurately reflects the service I personally performed and the decisions made by Tejal perez Drew, MD.
== END 2017-04-13 16:25 | disposition home or self-care (01) ==
LOC: ED 12:24
DX: E86.0 Dehydration (principal); R00.2 Palpitations; E87.6 Hypokalemia; R11.2 Nausea with vomiting, unspecified; Z87.891 Personal history of nicotine dependence
CPT/HCPCS: 36415; 74020; 80053; 80164; 80175; 82150; 82550; 83605; 83690; 83735; 84484; 85025; 85730; 86140; 93005; 96374; 99283; A9270-GY; J2405

== ENCOUNTER 2017-07-05 20:45 | Inpatient (IN) | payer MEDICAID, OTHER ==
--- NOTE | 2017-07-05 22:22 | ED ---
Psychiatric Complaint - HPI Summary HPI Summary: Pt here w/ SI. She states she has bipolar d/o nad has been cycling alot over the past few months. Feels fine when she's "up" - gets alot done, sleeps well, etc but when she "crashes", it's difficult. States she has been dealing with family and life stress over the past year. WAs fighting with her son to get custody of her granddaughter and after many CPS calls, they finally won. However this custody only remained in place as long as her son lived in her home w/ the granddaughter and he just announced he's moving out. This is upsetting for the pt as she's close with her granddaughter and has limited access now to her as her car broke down a month ago and she has no means of getting another. She has also been struggling with health issues over the past year including but not limited gastroparesis and kidney issues of unknown origin. She reports these make it difficult for her to leave the house as she gets tired easily. Admits when she was volunteering in school years ago, she felt good. 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 WIth this most recent change and her now living alone, she explains she doesn't want to feel this way anymore. Stayed with some friends the past 4 days and states she doesn't remember her time there as she was told she took a month's worth of ativan over this time. She explains she's been thinking all day about how she could end it with the remaining pills she has at home which include but are not limited to propranolol, sumatriptan, depakote, and control. No new physical complaints at this time - reports her sx are all chronic. [facility] and sees counselor Festus. Last appt was last month. - History Of Current Complaint Chief Complaint: EDMentalHealth Time Seen by Provider: 07/05/17 21:44 Hx Obtained From: Patient Hx Last Menstrual Period: 11/19/13 - Allergies/Home Medications Allergies/Adverse Reactions: Allergies Allergy/AdvReac Type Severity Reaction Status Date / Time Flu Virus Vaccine Allergy Unknown Unknown Verified 07/05/17 21:11 Reaction Details [place] Allergy Swelling Verified 07/05/17 21:11 Trazodone Allergy Hives Verified 07/05/17 21:11 environmental Allergy Mild Unknown Uncoded 07/05/17 21:11 Reaction Details PMH/Surg Hx/FS Hx/Imm Hx Previously Healthy: Yes Endocrine/Hematology History: Reports: Hx Anemia Denies: Hx Diabetes, Hx Thyroid Disease Cardiovascular History: Reports: Hx Valvular Heart Disease - Aortic regurg Denies: Hx Hypertension Comment Only: Other Cardiovascular Problems/Disorders - Oliver's syndrome Respiratory History: Reports: Hx Asthma - controlled w/ meds Denies: Hx Chronic Obstructive Pulmonary Disease (COPD) GI History: Reports: Hx Ulcer - gerd, Other GI Disorders - Hx GERD History: Reports: Other Problems/Disorders - chronic kidney disease Musculoskeletal History: Reports: Hx Scoliosis Sensory History: Reports: Hx Contacts or Glasses Denies: Hx Hearing Aid Opthamlomology History: Reports: Hx Contacts or Glasses Neurological History: Reports: Hx Migraine, Hx Seizures - 11/2013 Psychiatric History: Reports: Hx Anxiety, Hx Depression, Hx Bipolar Disorder - Cancer History Hx Chemotherapy: No Hx Radiation Therapy: No - Surgical History Surgery Procedure, Year, and Place: erik. left knee lateral release Infectious Disease History: No Infectious Disease History: Denies: Hx Clostridium Difficile, Hx Hepatitis, Hx Human Immunodeficiency Virus (HIV), Hx of Known/Suspected MRSA, Hx Shingles, Hx Tuberculosis, Traveled Outside the [place] in Last 30 Days - Family History Known Family History: Positive: Cardiac Disease Family History: Kidney Disorders - Social History Occupation: Unemployed Lives: Alone Alcohol Use: None Hx Substance Use: No Substance Use Type: Reports: None Hx Tobacco Use: Yes Smoking Status (MU): Former Smoker Type: Cigarettes Have You Smoked in the Last Year: No Review of Systems Constitutional: Negative Negative: Fever, Chills Eyes: Negative ENT: Negative Negative: Sore Throat, Ear Ache, Nasal Discharge Cardiovascular: Negative Negative: Palpitations, Chest Pain Respiratory: Negative Negative: Shortness Of Breath, Cough Gastrointestinal: Negative, Other - decreased appetite d/t mood Negative: Abdominal Pain, Vomiting, Diarrhea, Nausea Positive: no symptoms reported Musculoskeletal: Negative Skin: Negative Neurological: Negative Psychological: Other - SI w/ plan as in HPI All Other Systems Reviewed And Are Negative: Yes Physical Exam Triage Information Reviewed: Yes Vital Signs On Initial Exam: Initial Vitals Temp Pulse Resp BP Pulse Ox 97.9 F 101 16 125/109 100 08/23/17 21:08 07/05/17 21:08 07/05/17 21:08 07/05/17 21:08 07/05/17 21:08 Vital Signs Reviewed: Yes Appearance: Positive: No Pain Distress - appears low, but is calm and cooperative; makes eye contact occasionally, Well-Nourished Skin: Positive: Warm, Dry Head/Face: Positive: Normal Head/Face Inspection Eyes: Positive: EOMI ENT: Positive: Hearing grossly normal Neck: Positive: Supple Respiratory/Lung Sounds: Positive: Clear to Auscultation, Breath Sounds Present. Negative: Rales, Rhonchi, Wheezes Cardiovascular: Positive: Normal, RRR, S1, S2 Abdomen Description: Positive: Soft Musculoskeletal: Positive: Normal, Strength/ROM Intact Neurological: Positive: Normal, Sensory/Motor Intact, Alert, Oriented to Person Place, Time, CN Intact II-III Psychiatric: Positive: Other - low mood, but pleasant and cooperative, tearful at times - SI w/ plan as in HPI - [place] Coma Scale Coma Scale Total: 15 Diagnostics - Vital Signs Vital Signs Temp Pulse Resp BP Pulse Ox 07/05/17 21:11 97.9 F 101 16 125/109 100 07/05/17 21:08 97.9 F 101 16 125/109 100 - Laboratory Lab Statement: Any lab studies that have been ordered have been reviewed, and results considered in the medical decision making process. Course/Dx - Course Course Of Treatment: Pt here w/ SI w/ plan after reported cycling through bipolar ups and downs over the past many months. Recent trigger is son is leaving her house with her granddaughter. Plans to take pills she has at home which could be quite harmdful if taken inappropriately. Discussed with MH - may proceed with exam. Signed out to Dr. Razo @ 22:27 - Differential Dx/Clinical Impression Provider Diagnosis: Suicidal intent, Bipolar disorder Discharge - Discharge Plan Condition: Fair Disposition: OTHER Discharge Disposition Comment: signed out to Dr. Razo
[2017-07-05 23:48] LABS: Hematocrit 36 % (35-47); Hemoglobin 12.3 g/dl (12.0-16.0); Mean Corpuscular HGB Conc 34 g/dl (31-36); Mean Corpuscular Hemoglobin 32 pg (27-31); Mean Corpuscular Volume 94 fL (80-97); Mean Platelet Volume 8 um3 (7.4-10.4); Red Blood Count 3.83 10^6/ul (4.0-5.4); Red Cell Distribution Width 14 % (10.5-15); White Blood Count 10.3 10^3/ul (3.5-10.8)
[2017-07-05 23:55] LABS: Urine Bacteria 1+ (Absent); Urine Bilirubin Negative (Negative); Urine Glucose Negative (Negative); Urine Nitrite Negative (Negative)
[2017-07-05 23:59] LABS: ALT 12 U/L (7-52); AST 17 U/L (13-39); Albumin 4.2 g/dL (3.2-5.2); Alkaline Phosphatase 75 U/L (34-104); Anion Gap 7 mmol/L (2-11); BUN/Creatinine Ratio 8.8 (8-20); Blood Urea Nitrogen 10 mg/dL (6-24); CO2 Carbon Dioxide 28 mmol/L (22-32); Calcium 9.6 mg/dL (8.6-10.3); Chloride 102 mmol/L (101-111); EGFR Non-African American 52.1 (>60); Globulin 3.4 g/dL (2-4); Glucose 99 mg/dL (70-100); Potassium 3.3 mmol/L (3.5-5.0); Sodium 137 mmol/L (133-145); Total Protein 7.6 g/dL (6.4-8.9)
[2017-07-06] LABS: Acetaminophen < 15 mcg/mL; Alcohol < 10 mg/dL (<10); Benzodiazepine Urine Screen None Detected (None Detect); Salicylate < 2.50 mg/dL (<30)
[2017-07-06 00:09] LABS: TSH (Thyroid Stimulating Horm) 2.59 mcIU/mL (0.34-5.60)
[2017-07-06] MEDS ORDERED: Al Hydrox/Mg Hydrox/Simet LIQ* 30 ML UDC PO PRN (12:55)
[2017-07-06] MEDS ORDERED: Polyethylene Glycol 3350* 17 GM PACKET PO PRN (12:58)
[2017-07-06] MEDS ORDERED: Nitroglycerin 2% OINT* 1 GM PAK TOPICAL PRN (12:59)
[2017-07-06] MEDS ORDERED: hydrOXYzine HCL TAB* 50 MG PO PRN (12:59)
[2017-07-06] MEDS ORDERED: SUMAtriptan TAB* 25 MG PO PRN (13:00)
[2017-07-06] MEDS ORDERED: Nitro Patch/OINT Remove TOPICAL PRN (13:39)
--- NOTE | 2017-07-06 16:06 | CONSULT ---
Consult Consult: Ms. Longoria was sent in by her psychiatrist with the concern that she was unsafe. She has had a lot of stressors recently and was C/O SI. She was medically cleared on a previous shift and had a MHE. She will be admitted on an involuntary basis in stable condition with a diagnosis of suicidal ideation. I signed a [id number] for her as I am concerned for her safety.
[2017-07-06] MEDS: Divalproex DR TAB(*) 250 MG PO SCH ×2 (21:39→21:53)
[2017-07-06] MEDS: Famotidine TAB* 20 MG PO SCH ×2 (21:40→21:53)
[2017-07-06] MEDS: Cyclobenzaprine TAB* 10 MG PO SCH ×2 (21:40→21:53)
[2017-07-06] MEDS: Mometasone/Formoter 200/5 MDI INH SCH (21:50)
[2017-07-06] MEDS: Pyridoxine TAB* 50 MG PO SCH (21:51)
[2017-07-07] MEDS ORDERED: Albuterol HFA INHALER* 8 gm MDI INH PRN (09:29)
[2017-07-07] MEDS: Montelukast Sodium TAB* 10 MG PO SCH (10:33)
[2017-07-07] MEDS: Cetirizine* 10 MG TAB PO SCH (10:33)
[2017-07-07] MEDS: Mometasone/Formoter 200/5 MDI INH SCH ×2 (10:34→20:56)
[2017-07-07] MEDS: Fluticasone NASAL SPRAY 50MCG* 16 gm SPRAY BTL BOTH NARES SCH (10:35)
[2017-07-07] MEDS: Famotidine TAB* 20 MG PO SCH ×2 (10:36→20:13)
[2017-07-07] MEDS: lamoTRIgine TAB(*) 25 MG PO SCH (10:38)
[2017-07-07] MEDS: Senna TAB PO SCH (10:39)
[2017-07-07] MEDS: Pyridoxine TAB* 50 MG PO SCH ×2 (10:41→20:13)
[2017-07-07] MEDS: Divalproex DR TAB(*) 250 MG PO SCH ×2 (10:43→20:11)
[2017-07-07] MEDS: Vitamin THERAPEUTIC TAB PO SCH (10:43)
[2017-07-07] MEDS: Propranolol LA CAP* 120 MG PO SCH (10:43)
[2017-07-07] MEDS ORDERED: Ondansetron ODT TAB* 4 MG PO ONE (11:58)
[2017-07-07] MEDS ORDERED: Cyanocobalamin INJ * 1,000 MCG/ML VIAL 1 ML VIAL IM SCH (13:00)
[2017-07-07] MEDS: Acetaminophen TAB* 325 MG PO PRN ×2 (14:39→18:52)
[2017-07-07] MEDS: ARIPiprazole TAB* 5 MG PO SCH (20:10)
[2017-07-07] MEDS: Cyclobenzaprine TAB* 10 MG PO SCH (20:10)
--- NOTE | 2017-07-07 21:22 | HP ---
HISTORY AND PHYSICAL: DATE OF ADMISSION: 07/06/17 SUPERVISING PSYCHIATRIST: Dickson Montoya MD * (dictated by NAIMA Little ). JUSTIFICATION FOR ADMISSION: The patient was sent to the ED by her outpatient psychiatrist and [facility] as she had expressed suicidal ideation and increase in numerous psychosocial stressors. She presented to the emergency room and was initially agreeable to voluntary admission. However, upon finding that she would not be able to have her phone, she was irritable and refusing to walk to the unit. Case was reviewed with on- call psychiatrist and due to collateral from her outpatient providers, it was deemed necessary to admit her on involuntary status. CHIEF COMPLAINT: "It's been an extremely long year." HISTORY OF PRESENT ILLNESS: The patient is a 47-year-old female with 2 previous psychiatric hospitalizations; one was here at [facility] over 20 years ago after a suicide attempt and in May 2000, she was in [place] and received ECT treatment. She reports that recently she has been more tired, exhausted, physically weak. She states that she has been in a bipolar mixed state since late winter, early spring. She reports a history rapid cycling. She states that she has been having increasing stressors over this year including finances. She said she had to drop out of school and therefore, lost her student loans. She has been treated for kidney disease this year and had 50% renal sufficiency. She has had housing problems including bed bugs and most recently her son moved out and therefore, neither she or he have joint custody of his daughter, her 18-year-old granddaughter, Kieran. Lorena reports that she is pursuing joint custody of the child, as she is concerned for her care while she is with the mother. She reports getting a message from the child law guardian yesterday and finding out that she can now supervise the visits of the child at her house for her son. Lorena presents as irritable and talkative, almost overinclusive. She perseverates on the frustration of coming to the emergency room for help and then did not like the rules of the unit. She states that not having her phone is causing more strain to her than being at home. She is angry about not being able to have her own clothing and not getting her medications in a timely manner. She states that by the time she was offered her medications, she was too nauseous, physically ill to take them. She did take medications this morning including medications for migraine headaches. Lorena minimizes her reports of suicidal ideation earlier in the week. She is intermittently cooperative with interview and attempts to focus on resources that the hospital can provide to her during her stay. She denies audio or visual hallucination. She denies SIB urges. She denies history of violence or destruction. She denies depersonalization or OCD symptoms. PAST PSYCHIATRIC HISTORY: As stated above, Lorena was hospitalized at [facility] over 20 years ago after a suicide attempt. She said she received ECG treatments in [place] in May 2000. For approximately 8 years [facility] [place]. She sees Dr. Worthy in every few months and she has a therapist, Festus. She reports that she has not been able to see Festus this past month due to scheduling difficulties and transportation. She reports being on numerous psychotropics in the past. She states that approximately 18 years ago, she was on lithium and gained 30 pounds of water weight in 2 days. She recalls Seroquel was too sedating. She reports she used clonidine for an overdose attempt. She states that a combination of Abilify and Wellbutrin were helpful in the past; however, had an onset of seizure activity. According to this contract technical writer's collateral from Dr. Worthy, the patient has been on multiple medications and has had an increase in depression of late, likely due to psychosocial stressors. She recalls that she was doing well on Abilify for a few years, but may have had some EPS symptoms. She says that Lorena likely has a mild form of bipolar disorder and may actually fit more so in the major depressive disorder category. She is concerned about her recent suicidality. PAST MEDICAL HISTORY: Migraine headache, epilepsy, hiatal hernia, herniated diaphragm and GERD, Raynaud syndrome, asthma, and scoliosis. She is post menopause and on HRT. PAST SURGICAL HISTORY: Cholecystectomy, left knee surgery. PRIMARY CARE PROVIDER: Dr. Lawrence. CHIEF OPHTHALMIC TECHNICIAN: Dr. Limon. NEUROLOGIST: Dr. Leonard. DEPUTY CONTROLLER: Dr. Garcia in [place]. She goes to [facility]. CURRENT MEDICATIONS: I verified most recent medications through her pharmacy [facility]. 1. Albuterol inhaler 2 puffs q.4 hours p.r.n. SOB. 2. Cetirizine 10 mg p.o. daily. 3. Vitamin B12 injection 1000 mcg IM q. week. 4. Flexeril 10 mg p.o. at bedtime. 5. Depakote ER 250 mg p.o. q.a.m. 6. Depakote ER 500 mg p.o. at bedtime. 7. Famotidine 40 mg p.o. b.i.d. 8. Flonase 2 sprays both nares daily. 9. Lactulose 330 mg p.o. t.i.d. p.r.n. constipation. 10. Lamotrigine 75 mg p.o. daily. 11. Singulair 10 mg p.o. daily. 12. Dulera 200/5 MDI 2 puffs inhaled b.i.d. 13. Nitroglycerin 2% ointment 1 inch topical q.8 hours p.r.n. chest pain. 14. MiraLAX 17 g p.o. daily p.r.n. constipation. 15. Propranolol LA 120 mg p.o. daily. 16. Vitamin B6 tab 100 mg p.o. b.i.d. 17. Senokot 2 tabs p.o. daily. 18. Sumatriptan succinate 25 mg p.o. b.i.d. p.r.n. headache. 19. I checked I-STOP and she last received lorazepam 0.5 mg b.i.d. x15 days on 03/28/17. [facility] reference number is [id number]. ALLERGIES: LITHIUM, FLU VIRUS VACCINE, TRAZODONE, and ENVIRONMENTAL allergies. Height is 5 feet 7 inches, weight is approximately 150 pounds. FAMILY PSYCHIATRIC HISTORY: History of anxiety in her mother, aunt, and uncle. History of bipolar disorder. History of depression in her sister and mother. She does not know of family history of suicide. SOCIAL HISTORY: Lorena lives in an apartment on her own. Her son was living with her, but he moved out recently with current girlfriend. Lorena is a grandmother of 3 girls and is very active in her life. She is not working at this time and is on a limited income from social security benefits. See psychosocial assessment for full history. REVIEW OF SYSTEMS: Constitutional: Negative. Head: Positive for migraine headache. Eyes: Negative. ENT: Negative. Cardiovascular: Negative. Respiratory: Negative. Gastrointestinal: Positive for nausea and decreased appetite. Musculoskeletal: Negative. Skin: Negative. Psychological: Depressed, irritable, suicidal ideation with plan to overdose on her prescription medications. PHYSICAL EXAMINATION VITAL SIGNS: Most recent vital signs; temp 99.1, pulse 84, respirations 16, O2 sat 100%, blood pressure 109/59. The patient refuses physical exam. I reviewed the physical exam done in the emergency department, I do not see any areas of concern. LABORATORY DATA: Laboratory data obtained in the emergency department; CBC is grossly negative. CMP; potassium 3.3, creatinine slightly high at 1.13. Her TSH is 2.59. Urinalysis; 3+ blood, trace of leukocyte esterase, 1+ WBC, 1+ RBC , 1+ bacteria, squamous epithelial cells present. Toxicology is negative for salicylates, acetaminophen and serum alcohol. Urine drug screen for positive for cannabis. MENTAL STATUS EXAM: The patient is dysphoric and irritable, dressed in her own clothing. She sits on the bed and is cooperative with interview. She has large gesticulations and moved position often. She is alert and oriented x3. Her concentration is fair. Her recall is fair. Her mood is irritated. Affect is restricted. Her speech is rapid, over inclusive. Thought process is circumstantial and perseverating on her desire to not be in the hospital. She denies active SI. Her insight is poor. Judgment is fair. Fund of knowledge is adequate. DIAGNOSES: [place] I: Unspecified bipolar disorder, rule out major depressive disorder, cannabis use disorder; rule out depression related to general medical condition , multiple comorbidities. [place] II: Deferred. [place] III: Migraine headaches, seasonal allergies, B12 deficiency, seizure disorder, asthma, constipation, and gastroesophageal reflux disease. [place] IV: Severe stressors related to finances, lack of transportation, social isolation and interpersonal relationships. [place] V: 45. PLAN: Admit to behavioral services unit on 9.39 status. Code status is full. Place on q.15 minute checks for safety. Encouraged use of therapeutic milieu, individual and psychoeducational groups. We will titrate medications to efficacy and monitor for mood and thought content. Estimated length of stay is 3 to 5 days. DISCHARGE PLAN: Family involvement and outpatient providers. LASHAWN ANTHONY NP [id number]/[facility] #: [id number] [facility] HOSPITALBeck
[2017-07-08] MEDS: Acetaminophen TAB* 325 MG PO PRN (06:31)
[2017-07-08] MEDS: Propranolol LA CAP* 120 MG PO SCH ×2 (09:00→20:42)
[2017-07-08] MEDS: Pyridoxine TAB* 50 MG PO SCH ×2 (09:01→20:41)
[2017-07-08] MEDS: Vitamin THERAPEUTIC TAB PO SCH (09:01)
[2017-07-08] MEDS: Famotidine TAB* 20 MG PO SCH ×2 (09:01→20:40)
[2017-07-08] MEDS: lamoTRIgine TAB(*) 25 MG PO SCH ×2 (09:02→20:42)
[2017-07-08] MEDS: Senna TAB PO SCH (09:03)
[2017-07-08] MEDS: Cetirizine* 10 MG TAB PO SCH (09:04)
[2017-07-08] MEDS: Divalproex DR TAB(*) 250 MG PO SCH ×2 (09:04→20:41)
[2017-07-08] MEDS: Montelukast Sodium TAB* 10 MG PO SCH (09:04)
[2017-07-08] MEDS: Mometasone/Formoter 200/5 MDI INH SCH ×2 (09:05→20:39)
[2017-07-08] MEDS: Fluticasone NASAL SPRAY 50MCG* 16 gm SPRAY BTL BOTH NARES SCH (09:06)
[2017-07-08] MEDS ORDERED: Ibuprofen TAB* 400 MG PO PRN (12:00)
--- NOTE | 2017-07-08 12:08 | PN ---
Subjective - Subjective Service Type: 86521 Hosp care 15 min low complexity Subjective: Patient calm and cooperative. Has some med regimen concerns as follows: she prefers ibuprofen to tylenol for pain, she takes her scheduled lamotrigine and propranolol at night instead of days and she wants to be resumed on her oral contraceptive, which she's taking for PCOS. The patient denies SI and appears to be in fair spirits. Objective - Appearance Appearance: Well Developed/Nourished Dysmorphic Features: No Hygiene: Normal Grooming: Well Kept - Behavior Psychomotor Activities: Normal Exhibits Abnormal Movement: No - Attitude and Relatedness Attitude and Relatedness: Cooperative Eye Contact: Fair - Speech Quality: Pressured Latencies: Short Quantity: Copious - Mood Patient's Decription of Mood: "Irritable" - Affect Observed Affect: Fair Affect Consistent with: Dysphoria - Thought Process Patient's Thought Process: Goal Directed Thought Content: No Passive Wish, No Suicidal Planning, No Homicidal Ideation, No Paranoid Ideation - Sensorium Experiencing Hallucinations: No, Sensorium is Clear Type of Hallucinations: Visual: No, Auditory: No, Command: No - Level of Consciousness Level of Consciousness: Alert Orientation: Yes Intact, Yes Orientated to Time, Yes Orientated to Place, Yes Orientated to Person - Impulse Control Impulse Control: Tenuous - Insight and Judgement Insight and Judgement: Fair - Group Participation Particating in Group Activities: Yes - Medication Management Medication Management Adherence: Yes Assessment - Assessment Merits Inpatient Hospitalization: Consolidate Improvements, Pending Safe DC Plan Inpatient DSM-IV Dx: Bipolar, mixed episode, severe without psychotic features Clinical Impression: 47 y.o. white female with a history of bipolar disorder sent to the ED by her primary care provider after presenting with SI in the context of multiple psychosocial stressors. Patient place on 9.39 status after trying to leave ED AMA. Plan - Plan Treatment Plan: Name: VALENTIN SMITH Birthdate: 1970 [id number] Patient on aripiprazole, valproic acid and lamotrigine. Continue inpatient level services on involuntary legal status. VPA is therapeutic at 68. Continued Medication Management: Start Medication Medications: Current Medications Al Hydrox/Mg Hydrox/Simethicone (Maalox Plus*) 30 ml PO Q4H PRN PRN Reason: INDIGESTION Albuterol (Ventolin Hfa Inhaler*) 2 puff INH Q4H PRN PRN Reason: SHORTNESS OF BREATH Last Admin: 07/07/17 09:30 Dose: 2 puff Aripiprazole (Abilify Tab*) 5 mg PO BEDTIME [facility] Last Admin: 07/07/17 20:10 Dose: 5 mg Cetirizine HCl (Zyrtec*) 10 mg PO DAILY [facility] Last Admin: 07/08/17 09:04 Dose: 10 mg Cyanocobalamin (Vitamin B12 Inj *) 1,000 mcg IM Q7D [facility] Last Admin: 07/07/17 19:30 Dose: 1,000 mcg Cyclobenzaprine HCl (Flexeril Tab*) 10 mg PO BEDTIME [facility] Last Admin: 07/07/17 20:10 Dose: 10 mg Divalproex Sodium (Depakote Dr Tab(*)) 250 mg PO DAILY [facility] Last Admin: 07/08/17 09:04 Dose: 250 mg Divalproex Sodium (Depakote Dr Tab(*)) 500 mg PO BEDTIME [facility] Last Admin: 07/07/17 20:11 Dose: 500 mg Famotidine (Pepcid Tab*) 40 mg PO BID [facility] Last Admin: 07/08/17 09:01 Dose: 40 mg Fluticasone Propionate (Flonase Nasal [place] 50mcg*) 2 spray BOTH NARES DAILY [facility] Last Admin: 07/08/17 09:06 Dose: 2 spray Hydroxyzine HCl (Atarax Tab*) 50 mg PO Q6H PRN PRN Reason: AGITATION/ANXIETY/INSOMNIA Ibuprofen (Motrin Tab*) 400 mg PO Q6H PRN PRN Reason: PAIN Lactulose (Lactulose*) 30 ml PO TID PRN PRN Reason: CONSTIPATION Lamotrigine (Lamictal Tab(*)) 75 mg PO BEDTIME [facility] Mometasone Furoate/Formoterol Fumar (Dulera 200/5 Mdi*) 2 puff INH BID [facility] Last Admin: 07/08/17 09:05 Dose: 2 puff Montelukast Sodium (Singulair Tab*) 10 mg PO DAILY [facility] Last Admin: 07/08/17 09:04 Dose: 10 mg Multivitamins (Theragran Tab*) 1 tab PO DAILY [facility] Last Admin: 07/08/17 09:01 Dose: 1 tab Nitroglycerin (Nitroglycerin 2% Oint*) 1 inch TOPICAL Q8H PRN; Protocol PRN Reason: PAIN Norethindrone (Corine (Nf)) 0.35 mg PO DAILY [facility] Pharmacy Profile Note (Nitro Patch/Oint Remove*) 1 note TOPICAL Q8H PRN PRN Reason: IF OINTMENT APPLIED Polyethylene Glycol/Electrolytes (Miralax*) 17 gm PO DAILY PRN PRN Reason: CONSTIPATION Propranolol HCl (Inderal [place]*) 120 mg PO BEDTIME [facility] Pyridoxine HCl (Vitamin B6 Tab*) 100 mg PO BID [facility] Last Admin: 07/08/17 09:01 Dose: 100 mg Senna (Senokot Tab*) 2 tab PO DAILY [facility] Last Admin: 07/08/17 09:03 Dose: 2 tab Sumatriptan Succinate (Imitrex Tab*) 25 mg PO BID PRN PRN Reason: HEADACHE Last Admin: 07/07/17 11:00 Dose: 25 mg - Discharge Plan Discharge Plan: Inpatient Hospitalization Lab Results - Lab Results Lab Results: 07/08/17 07:43 Valproic Acid 66.0
[2017-07-08] MEDS: Cyclobenzaprine TAB* 10 MG PO SCH (20:40)
[2017-07-08] MEDS: ARIPiprazole TAB* 5 MG PO SCH (20:40)
[2017-07-08] MEDS: PTO:Norethindrone (NF) 0.35 MG TAB PO SCH (20:43)
[2017-07-09] MEDS: Senna TAB PO SCH (08:32)
[2017-07-09] MEDS: Divalproex DR TAB(*) 250 MG PO SCH ×2 (08:32→20:21)
[2017-07-09] MEDS: Famotidine TAB* 20 MG PO SCH ×2 (08:32→20:22)
[2017-07-09] MEDS: Vitamin THERAPEUTIC TAB PO SCH (08:32)
[2017-07-09] MEDS: Montelukast Sodium TAB* 10 MG PO SCH (08:33)
[2017-07-09] MEDS: Cetirizine* 10 MG TAB PO SCH (08:33)
[2017-07-09] MEDS: Fluticasone NASAL SPRAY 50MCG* 16 gm SPRAY BTL BOTH NARES SCH (08:33)
[2017-07-09] MEDS: Mometasone/Formoter 200/5 MDI INH SCH ×2 (08:34→20:21)
[2017-07-09] MEDS: Pyridoxine TAB* 50 MG PO SCH ×2 (09:04→20:22)
[2017-07-09] MEDS: PTO:Norethindrone (NF) 0.35 MG TAB PO SCH ×2 (09:04→20:24)
[2017-07-09] MEDS: Zinc Sulfate CAP* 220 MG PO SCH (13:58)
[2017-07-09] MEDS: lamoTRIgine TAB(*) 25 MG PO SCH (20:21)
[2017-07-09] MEDS: Cyclobenzaprine TAB* 10 MG PO SCH (20:22)
[2017-07-09] MEDS: ARIPiprazole TAB* 5 MG PO SCH (20:22)
[2017-07-09] MEDS: Propranolol LA CAP* 120 MG PO SCH (20:23)
[2017-07-10 08:32] VITALS: BP 100/56
[2017-07-10] MEDS: Mometasone/Formoter 200/5 MDI INH SCH (08:47)
[2017-07-10] MEDS: Divalproex DR TAB(*) 250 MG PO SCH (08:49)
[2017-07-10] MEDS: Fluticasone NASAL SPRAY 50MCG* 16 gm SPRAY BTL BOTH NARES SCH (08:49)
[2017-07-10] MEDS: Famotidine TAB* 20 MG PO SCH (08:49)
[2017-07-10] MEDS: Vitamin THERAPEUTIC TAB PO SCH (08:50)
[2017-07-10] MEDS: Montelukast Sodium TAB* 10 MG PO SCH (08:50)
[2017-07-10] MEDS: Pyridoxine TAB* 50 MG PO SCH (08:50)
[2017-07-10] MEDS: Cetirizine* 10 MG TAB PO SCH (08:50)
[2017-07-10] MEDS: Senna TAB PO SCH (08:50)
[2017-07-10] MEDS: Zinc Sulfate CAP* 220 MG PO SCH (08:54)
[2017-07-10] MEDS ORDERED: PTO:Linaclotide (NF) 290 MCG CAP PO SCH (09:00)
--- NOTE | 2017-07-10 11:56 | PN ---
MHU: Group Therapy Note - Service Type Service Type: [id number] Group Psychotherapy - Cognitive Behavioral Group Therapy ( CBT):Patient was attentive and participatory in CBT programming this morning, and remained in good behavioral control. Patient expressed positive insights regarding relevant treatment interventions and goals.
--- NOTE | 2017-07-10 15:44 | DS ---
CC: Dr. Worthy, [facility]; Dr. Lawrence* DATE OF ADMISSION: 07/06/2017. DATE OF DISCHARGE: 07/10/2017. SUPERVISING PSYCHIATRIST: Dr. Dickson Montoya* (dictated by NAIMA Little) . DISCHARGE DIAGNOSES: [place] I: Unspecified bipolar disorder, rule out major depressive disorder, cannabis use disorder. [place] II: Deferred. [place] III: Migraine headaches, vitamin B12 deficiency, seizure disorder, asthma , constipation, GERD. [place] IV: Stressors related to financial strain and transportation access to [employer]. AX[place] V: 55. CONDITION AT TIME OF DISCHARGE: Improved. Lorena reports much improved mood. She presents as euthymic and is not irritable. She is pleasant and cooperative. She is noted to have improved ADL's. She has been participating more so on the unit. She has been present for groups and meals and interactive with select staff and peers. She denies suicidal ideation. She denies thinking of suicide while she has been in the hospital. She states that she "wants to go home and see my babies." She reports that she has plans to help care for her two granddaughters this week. We discussed the stressors leading to admission last week. She attributes this to an increase in financial strain and medical complications in the past year. She specifically eludes to problems with kidney function. 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 She needs to go to [facility] in regards to food stamps and section 8. She reports gaining some information from groups and programming while on the unit, especially in regards to stress management. MENTAL STATUS EXAM: The patient is adequately groomed. Her skin is more well- perfused than we last met on Monday. She is noted to have more color in her cheeks and her lips. She is moderately overweight, wearing borrowed clothing as a lot of her own clothing had drawstrings. She states this is because of weight loss over the past year and the only thing that fits her is clothing with drawstrings. She is alert and oriented times three. Her posture is somewhat slouched, sitting on the bed. She is euthymic with a full range of affect. Her eye contact is good. Her speech is soft and articulate. Her thought process is logical and goal- directed, no longer circumstantial in regards to being admitted involuntarily. Thought process is negative for SI, AH or VH. Her insight is good, her judgment is good and her fund of knowledge is good. Discharge Instructions were given to the patient: The only new medication from this visit is Abilify 5 mg p.o. daily and this was electronically prescribed to [facility] pharmacy in [place]. All of the other medications were prescribed previously by her primary care provider and her specialist. This magazine writer encouraged Lroena to discuss with her medical providers about decreasing polypharmacy, especially in light of recent kidney failure. DIET: Regular. Consider a renal diet. ACTIVITY: Ambulation as tolerated. Tobacco cessation is not applicable. There are no pending labs or diagnostic studies at the time of discharge. FOLLOW-UP CARE: Lorena will return to Dr. Worthy and her therapist Festus at [facility]. Her next appointment with Dr. Worthy is July 18 at 12:30. Discharge planning is attempting to secure an appointment for her with Festus. HOSPITAL COURSE: A. Reason for admission: The patient was sent to the ED by her outpatient psychiatrist and therapist at [facility]. She had expressed suicidal ideation in the context of increase psychosocial stressors. She presented to the emergency room and was initially agreeable to voluntary admission; however, upon finding that she would not be able to have her phone, she was irritable and requesting to leave the emergency room against medical advise. Because of this, she was admitted to the Behavioral Services Unit on status. B. Psychiatric treatment rendered: The patient was admitted to the Behavioral Services Unit on status, code status was full. She was placed on 15 minute checks for safety. She was encouraged to use therapeutic milieu, individual and psychoeducational groups. The patient was irritable and circumstantial about events in the emergency room over the course of the first day of her admission. She did agree to a trial of Abilify for increasing mood and irritability. She identified increase in depressive symptoms over the past few months. She was able to give an accurate medication history and this was verified by collateral information from her psychiatrist, Dr. Worthy. Over the course of the weekend, the patient was more interactive and participated in unit programming, groups and meals. She was medication compliant. She reports adequate sleep and appetite. She denied suicidal ideation. She reports continued stressors in regards to Glass [employer]ature G[employer]. She is motivated to return to [facility] to seek help for these. She is looking forward to spending time with her granddaughters this week and states that this is very therapeutic for her. She has been safe on all checks and reports that she would prefer to pursue outpatient mental health services. The patient retains a moderate risk for suicide due to her medical comorbidities and access to medications. Safety planning has been done and will continue to be encouraged. Due to an obligation to treat in the least restrictive setting, it was decided that she can be discharged today and she reports that she has a friend, Bre, who can come to pick her up. LASHAWN ANTHONY, NAIMA [id number]/[facility] #: [id number] CHERYL
[2017-07-10] MEDS ORDERED: PTO:Norethindrone (NF) 0.35 MG TAB PO SCH (21:00)
== END 2017-07-10 13:55 | disposition home or self-care (01) | DRG 753 ==
LOC: ED 20:45 → BSU 07-06 15:18
PROVIDERS: ADMIT Psychiatry & Neurology Psychiatry; ATTEND Psychiatry & Neurology Psychiatry
DX: F31.9 Bipolar disorder, unspecified (principal); I65.8 Occlusion and stenosis of other precerebral arteries; E53.8 Deficiency of other specified B group vitamins; F12.10 Cannabis abuse, uncomplicated; G43.909 Migraine, unspecified, not intractable, without status migrainosus; G40.909 Epilepsy, unspecified, not intractable, without status epilepticus; J45.909 Unspecified asthma, uncomplicated; K59.00 Constipation, unspecified; K21.9 Gastro-esophageal reflux disease without esophagitis; M41.9 Scoliosis, unspecified; Z79.899 Other long term (current) drug therapy; Z88.7 Allergy status to serum and vaccine; Z88.8 Allergy status to other drugs, medicaments and biological substances; Z81.8 Family history of other mental and behavioral disorders
CPT/HCPCS: 36415; 80053; 80061; 80164; 80307; 80320; 80329; 81003; 81015; 83036; 84443; 85025; 87086; 90853; 99222; 99231; 99238; A9270-GY; G0480; J3420

== ENCOUNTER 2018-07-02 15:09 | Emergency (ER) | payer OTHER ==
--- OUTSIDE RECORDS SUMMARY | 2018-07-02 15:13 | XMS REPORT ---
:1970 External Reference #:[id number] Author Organization [facility] Address [address] [place] [address] Phone [phone] Care Team Providers Name Role Phone John Lawrence M.D. Care Team Information Sheet Rock Taper Unavailable John Lawrence M.D. Primary Care Physician Unavailable Payers Type Date Identification Numbers Payment Provider Subscriber Commercial Policy Number: [id number] Ferdinand Longoria PayID: [id number] [place] [place] [address] Problems Description No Information Family History Date Family Member(s) Problem(s) Comments General Defects General Anxiety General Breast Lumps General ADHD General Asthma And Allergies General Arthritis General Depression Bipolar General Epilepsy 2013 General Gallstones Gall bladder removed 2006 General Kidney Disease Currently seeing Dr. Limon General Seasonal Allergies General Anemia General Bronchitis Seem prone to, particularly in winter General Chickenpox 1977 General Gastroesophageal Reflux Disease (GERD) General Headache Migraine and sinus General Heart Murmur Always had General Migraine General Vertigo General Manic Depression Dr. Worthy, [facility] General Bipolar Disorder Mother Chronic Obstructive Pulmonary Disease (COPD) Social History Type Date Description Comments Marital Status Single Lives With Alone Sleep Reports continuity disturbances Pets 1 cat Occupation Disabled Blood Donor Patient is not a blood donor ETOH Use Quit Using Alcohol. Smoking Patient is a former smoker Recreational Drug Use Used Recreational Drugs In The Past Allergies, Adverse Reactions, Alerts Date Description Reaction Status Severity Comments 05/18/2018 Trazodone Urticaria active Moderate 05/18/2018 Diflucan Urticaria active Moderate 05/18/2018 [place] Urticaria active Moderate Medications Medication Date Status Form Strength Qnty SIG Indications Ordering Provider Albuterol Sulfate 00/00 Active Nebulizer nebulized Unknown /0000 every 6 hours as needed Amlodipine 00/00 Active Tablets 2.5mg 1 by mouth Unknown Besylate /0000 every day Banophen Active Capsules 25mg Unknown /0000 Cetirizine HCL Active 1 by mouth Unknown /0000 every day Cyclobenzaprine Active Tablets 10mg Unknown HCL /0000 D[address]proex Sodium Active Tablets [address] 250mg Unknown /0000 Dulera Active Aerosol 200-5mcg/ inhale two Unknown /0000 Act puffs by mouth twice a day Epinephrine Active Solution 0.3mg/0.3 as Unknown /0000 Auto-Inject ML directed Famotidine Active Tablets 40mg take 1 by Unknown /0000 mouth every night as needed for dyspepsia Fluticasone Active Suspension 50mcg/Act 2 sprays Unknown Propionate /0000 both nostrils every day 12/02 Active Tablets 1-20mg-mc Unknown /0000 g Klor-Con 10 Active Tablets ER 10Meq Unknown /0000 Lamotrigine Active Unknown /0000 Lorazepam Active Tablets 0.5mg 1 by mouth Unknown /0000 at night for sleep as needed Magnesium Oxide Active Capsules 400mg Unknown /0000 Montelukast Active Tablets 10mg 1 by mouth Unknown Sodium /0000 every day Propranolol HCL Active Caps ER 120mg Unknown ER /0000 24HR Ventolin HFA Active Aerosol 108(90Bas 2 puffs Unknown /0000 e) every 4 mcg/Act hours as needed Xolair Active Solution 150mg Unknown /0000 Rec Vital Signs Date Vital Result Comment 06/08/2018 Weight 153.00 lb Height 66 inches 5'6" BMI (Body Mass Index) 24.7 kg/m2 BP Systolic 161 mmHg BP Diastolic 93 mmHg Heart Rate 67 /min O2 % BldC Oximetry 98 % Body Temperature 96.9 F Pain Level 8 05/18/2018 Weight 156.00 lb Height 66 inches 5'6" BMI (Body Mass Index) 25.2 kg/m2 BP Systolic 138 mmHg BP Diastolic 69 mmHg Heart Rate 83 /min O2 % BldC Oximetry 98 % Body Temperature 98.8 F Pain Level 0 Results Description No Information Procedures Date CPT Code Description Status 05/18/2018 51640 Tympanometry Completed 05/18/2018 27403 Audiometry, Comprehensive Completed 05/18/2018 90119 Nasal Endoscopy, Diag. Completed Encounters Type Date Location Provider CPT E/M Dx Office Visit 05/18/2018 12:00p [facility] Alejo Hollingsworth M.D. 37324 J32.9 J34.2 H69.83 H90.3 Plan of Care No Information Available
[2018-07-02 15:25] VITALS: BP 178/77
--- NOTE | 2018-07-02 15:40 | UC ---
Asthma HPI - HPI Summary HPI Summary: The patient is a 48 y/o F presenting to [facility] c/o sudden onset asthma exacerbation for the last two days. The pain is rated 4/10 in severity. She additionally c/o SOB, wheezing, and an occasional dry, nonproductive cough since onset. She has used her duonebulizer twice today to little relief [employer], but her symptoms have since improved at . She denies fever, chills, and chest pain. She has hx of asthma, renal failure, and seizures. Former smoker, no substance use, no EtOH. FHx of seizures. - History of Current Complaint Chief Complaint: UCRespiratory Stated Complaint: ASTHMA Time Seen by Provider: 07/02/18 15:28 Hx Obtained From: Patient Hx Last Menstrual Period: one week ago Onset/Duration: Sudden Onset, Lasting Days - two days, Still Present - but has improved Timing: Days Initial Severity: Mild Current Severity: Mild Pain Intensity: 4 Pain Scale Used: 0-10 Numeric Location/Character: Wheezing Aggravating Factor(s): Nothing Alleviating Factor(s): Inhalers/Nebulizers Associated Signs and Symptoms: Positive: Shortness of Breath, Other: - POSITIVE : occasional dry cough; NEGATIVE: fevers, chills, CP Related History: Similar Episode/Dx as - asthma - Allergy/Home Medications Allergies/Adverse Reactions: Allergies Allergy/AdvReac Type Severity Reaction Status Date / Time Influenza Virus Vaccines Allergy Intermediate Unknown Verified 07/02/18 15:25 Reaction Details lithium Allergy Mild Swelling Verified 07/02/18 15:25 trazodone Allergy Mild Hives Verified 07/02/18 15:25 fluconazole [From Diflucan] Allergy Hives Verified 07/02/18 15:25 environmental Allergy Mild Unknown Uncoded 07/02/18 15:25 Reaction Details PMH/Surg Hx/FS Hx/Imm Hx Respiratory History: Asthma Other GI/ History: Renal failure Neurological History: Seizures - Surgical History Surgical History: Yes Surgery Procedure, Year, and Place: cholecystectomy. left knee lateral release - Family History Known Family History: Positive: Cardiac Disease, Seizure Disorder Family History: Kidney Disorders - Social History Alcohol Use: None Alcohol Amount: Denies alcohol use Substance Use Type: None Substance Use Comment - Amount & Last Used: Pt took several days worth of Ativan prior to admission Smoking Status (MU): Former Smoker Type: Cigarettes Amount Used/How Often: Pt reports quitting "years ago" Have You Smoked in the Last Year: No When Did the Patient Quit Smoking/Using Tobacco: Pt reports quitting "years ago " - Immunization History Most Recent Influenza Vaccination: August 2016 Most Recent Pneumonia Vaccination: August 2016 Review of Systems Constitutional: Other - NEGATIVE: fevers, chills Respiratory: Shortness Of Breath, Cough - occasional, nonproductive, dry, Other - asthma exacerbation Cardiovascular: Other - NEGATIVE: chest pain All Other Systems Reviewed And Are Negative: Yes Physical Exam - Summary Physical Exam Summary: VITAL SIGNS: Reviewed. GENERAL: Patient is a well-developed and nourished female who is lying comfortable in the stretcher. Patient is not in any acute respiratory distress. HEAD AND FACE: Normocephalic EYES: PERRLA, EOMI x 2. EARS: Hearing grossly intact. MOUTH: Oropharynx within normal limits. NECK: Supple, trachea is midline, no adenopathy, no JVD, no carotid bruit. CHEST: Symmetric, no tenderness at palpation LUNGS: Clear to auscultation bilaterally. No wheezing or crackles. CVS: Regular rate and rhythm, S1 and S2 present, no murmurs or gallops appreciated. ABDOMEN: Soft, non-tender. Bowel sounds are normal. No abdominal abnormal pulsations. EXTREMITIES: Full ROM in all major joints, no edema, no cyanosis or clubbing. NEURO: Alert and oriented x 3. No acute neurological deficits. Speech is normal and follows commands. SKIN: Dry and warm Triage Information Reviewed: Yes Vital Signs: Initial Vital Signs Temp 98.7 F 07/02/18 15:21 Pulse 73 07/02/18 15:21 Resp 24 07/02/18 15:21 BP 178/77 07/02/18 15:21 Pulse Ox 95 07/02/18 15:21 Vital Signs Reviewed: Yes Asthma Course/Dx - Course Course Of Treatment: The patient was found to have increased BP in UC. The patient will follow up with PCP for better control of BP. . Patient is a 48-year-old female who presents to the urgent care with a chief complaint of having an asthma exacerbation. Patient reports that she is having the symptoms for about 1 day. Right before she came into the urgent care the patient had 2 DuoNeb treatments, and at this time the patient is not wheezing. Patient has good air movement. Patient was given Solu-Medrol. Since the patient is feeling better and O2 sat is normal, the patient will be discharged home with follow-up with PCP. Patient was given a prescription for prednisone. Patient did not have any fever or chills or any other symptom therefore she will not be given a prescription for antibiotics. Patient is hemodynamically stable alert oriented 3. - Differential Dx/Diagnosis Provider Diagnoses: asthma exacerbation Discharge - Sign-Out/Discharge Documenting (check all that apply): Patient Departure - Patient will be discharged home. All imaging exams completed and their final reports reviewed: Yes - Discharge Plan Condition: Stable Disposition: HOME Prescriptions: predniSONE [Prednisone 20 MG TAB] 20 mg PO DAILY #10 tablet Patient Education Materials: Asthma (ED), How to Use a Nebulizer (ED) Referrals: Perry Tinsley DO [Primary Care Provider] - 3 Days Additional Instructions: FOLLOW UP WITH YOUR PRIMARY CARE PROVIDER WITHIN ONE WEEK FOR HIGH BLOOD PRESSURE NOTED TODAY. RETURN TO URGENT CARE FOR ANY WORSENING OR NEW SYMPTOMS. - Billing Disposition and Condition Condition: STABLE Disposition: Home - Attestation Statements Document Initiated by Prosper: Yes Documenting Scribe: Jacquelin Coats Provider For Whom Prosper is Documenting (Include Credential): Kranthi Briggs MD Scribe Attestation: Jacquelin Kramer, scribed for Kranthi Briggs MD on 07/04/18 at 0731. Scribe Documentation Reviewed: Yes Provider Attestation: The documentation as recorded by the Jacquelin dickerson accurately reflects the service I personally performed and the decisions made by me, Kranthi Briggs MD
[2018-07-02] MEDS ORDERED: methylPREDNISolone 125 MG* 2 ML VIAL IV ONE (15:45)
[2018-07-02] MEDS ORDERED: methylPREDNISolone 125 MG* 2 ML VIAL IM ONE (15:51)
--- NOTE | 2018-07-03 08:19 | UC ---
- Progress Note Progress Note: no imaging studies ordered this encounter Discharge - Sign-Out/Discharge Documenting (check all that apply): Post-Discharge Follow Up All imaging exams completed and their final reports reviewed: No Studies - Discharge Plan Condition: Stable Disposition: HOME Prescriptions: predniSONE [Prednisone 20 MG TAB] 20 mg PO DAILY #10 tablet Patient Education Materials: Asthma (ED), How to Use a Nebulizer (ED) Referrals: Perry Tinsley DO [Primary Care Provider] - 3 Days Additional Instructions: FOLLOW UP WITH YOUR PRIMARY CARE PROVIDER WITHIN ONE WEEK FOR HIGH BLOOD PRESSURE NOTED TODAY. RETURN TO URGENT CARE FOR ANY WORSENING OR NEW SYMPTOMS. - Billing Disposition and Condition Condition: STABLE Disposition: Home
== END 2018-07-02 16:10 | disposition home or self-care (01) ==
LOC: UCEAST 15:09
DX: J45.901 Unspecified asthma with (acute) exacerbation (principal); Z87.891 Personal history of nicotine dependence
CPT/HCPCS: 96372; 99212; G0463; J2930